=== PATIENT | female | born 1945 | race Caucasian/White ===

== ENCOUNTER 2016-08-24 07:45 | Day surgery (SDC) | payer MEDICARE, BC ==
--- NOTE | 2016-08-24 06:15 | PCM.HP ---
H&P History of Present Illness - General Date of Service: 08/24/16 Admit Problem/Dx: change in bowel habits, family history of colon cancer, abdominal pain Source of Information: Patient History Limitations: Reports: No Limitations - History of Present Illness Initial Comments - Free Text/Narative: The patient is a 71-year-old female referred by Dr. Figueroa for colonoscopy. The patient presents today for colonoscopy. She was last evaluated 07/19/16. She reports the following health changes. She reports on mother's day she was standing by the counter in her grandson's kitchen and had sharp left sided chest pain that faintly radiated to her left arm. She reports it lasted five minutes. It was non-exertional. She did not have shortness of breath, diaphoresis. She has no chest pain presently. She has no palpitations. She denies recurrence of chest pain. She reports this chest pain episode is different than she had in the past, which was worked up as negative. She has not seen her PCP as directed for this. Previously reported-Alternating constipation/diarrhea, has been going on for a year. Still has this. Loose with eating lettuce or other foods. Stools are slimy with diarrhea. NO: hematochezia/ melena/blood on tissue paper/ hemorrhoids. Has 0-4 hard to loose stools, BMs daily. Bowel movements are described as irregular and easy to hard to pass. No unintentional weight loss. No change in stool caliber. Still At times will have abdominal pain prior to stooling. Denies history of ulcerative colitis or Crohn's disease. Denies any family history of inflammatory bowel disease or GI cancers. Family hx of colon cancer in mother. Last colonoscopy was 2002. Still no history of reflux, heartburn, nausea, vomiting, or dysphagia. "Burps a lot with pork." No right upper abdominal pain. At times will have giuliana/light colored stools with potatoes, crackers and cheese. No greasy stools. NO pain/diarrhea with fatty meals. - Related Data Allergies/Adverse Reactions: Allergies Allergy/AdvReac Type Severity Reaction Status Date / Time acetaminophen Allergy Nausea Verified 08/23/16 15:25 [From Darvocet-N] hydrocodone Allergy Nausea Verified 08/23/16 15:25 propoxyphene napsylate Allergy Nausea Verified 08/23/16 15:25 [From Italia-Bertha] Home Medications: Home Meds Cranberry Ext/C/L. Sporogenes [Azo Cranberry] 1 tab PO 6XDAY PRN 08/23/16 [ History] Ibuprofen [Ibuprofen] 800 mg PO Q6H PRN 08/23/16 [History] Levothyroxine [Synthroid] 50 mcg PO MOWEFR 08/23/16 [History] Levothyroxine [Synthroid] 100 mcg PO SUTUTHSA 08/23/16 [History] Losartan/Hydrochlorothiazide [Losartan-HCTZ 100-25 MG] 1 tab PO DAILY 08/23/16 [ History] Metoprolol Succinate 25 mg PO DAILY 08/23/16 [History] Mirabegron [Myrbetriq] 50 mg PO DAILY 08/23/16 [History] Multivitamin with Minerals [Multiple Vitamin] 1 tab PO DAILY 08/23/16 [History] Nitrofurantoin [place]/Macrocryst [Macrobid] 100 mg PO DAILY 08/23/16 [History] Rosuvastatin Calcium 5 mg PO DAILY 08/23/16 [History] Sertraline HCl [Sertraline HCl] 50 mg PO MOWEFR 08/23/16 [History] Sertraline HCl [Sertraline HCl] 100 mg PO SUTUTHSA 08/23/16 [History] metFORMIN HCl [Metformin HCl] 1,000 mg PO BID 08/23/16 [History] Past Medical History HEENT History: Reports: Impaired Vision, Other (See Below) Other HEENT History: wears glasses, tinnitis Cardiovascular History: Reports: High Cholesterol, Hypertension, Other (See Below) Other Cardiovascular History: chest pain Respiratory History: Reports: SOB Gastrointestinal History: Reports: Chronic Constipation, Chronic Diarrhea, Other (See Below) Other Gastrointestinal History: post op nausea/vomiting Genitourinary History: Reports: Urinary Incontinence, UTI, Recurrent SALESPERSON WOMEN'S DRESSES History: Reports: None Musculoskeletal History: Reports: Back Pain, Chronic, Fibromyalgia, Other (See Below) Other Musculoskeletal History: low back pain, lumbar degenerative disc disease, lumbar radiculopathy, spondylarthritis, myofasical pain, lumbar facet arthroplasty Neurological History: Reports: Other (See Below) Other Neuro History: meningioma, memory loss Psychiatric History: Reports: Other (See Below) Other Psychiatric History: fatigue Endocrine/Metabolic History: Reports: Diabetes, Type II, Hypothyroidism Hematologic History: Reports: Blood Transfusion(s) Immunologic History: Reports: None Oncologic (Cancer) History: Reports: None Dermatologic History: Reports: Psoriasis - Past Surgical History Head Surgeries/Procedures: Reports: None GI Surgical History: Reports: Colonoscopy Female Surgical History: Reports: Hysterectomy Musculoskeletal Surgical History: Reports: Other (See Below) Other Musculoskeletal Surgeries/Procedures:: broken ankle/leg with surgical repair, spinal fusion of L3L4L5 Social & Family History - Tobacco Use Smoking Status *Q: Former Smoker Month Tobacco Last Used: 1973 - Caffeine Use Caffeine Use: Reports: None - Recreational Drug Use Recreational Drug Use: No Drug Use in Last 12 Months: No H&P Review of Systems - Review of Systems: Review Of Systems: See Below Free Text/Narrative: Denies any exertional chest pain. Has exertional shortness of breath. No history of any easy bleeding or bruising. No personal or familial history of clotting or bleeding disorders. History of anesthetic complications, hard to come out, nausea. No history of familial anesthetic complications. Denies presence of chest pain, palpitations, lower extremity edema, dyspnea at rest, orthopnea, wheezing, obstructive sleep apnea, chronic cough, upper respiratory symptoms in the last two weeks. No history of blood thinner use. history of anemia, prior to hysterectomy. No history of seizure or stroke. No history of fever, chills, or nightsweats. Has cold sweats during the day. Has been going on for years. No prior cardiology or pulmonology evaluation. General: Reports: No Symptoms. Denies: Fever, Chills HEENT: Reports: No Symptoms Pulmonary: Reports: No Symptoms. Denies: Shortness of Breath Cardiovascular: Reports: Dyspnea on Exertion, Other (see hpi). Denies: Chest Pain, Palpitations, Orthopnea Gastrointestinal: Reports: Other (see hpi). Denies: Black Stool, Bloody Stool Genitourinary: Reports: No Symptoms Musculoskeletal: Reports: No Symptoms, Other (leg cramps last night) Skin: Reports: No Symptoms Psychiatric: Reports: No Symptoms Neurological: Reports: No Symptoms Hematologic/Lymphatic: Reports: No Symptoms Immunologic: Reports: No Symptoms Exam - Exam Exam: See Below - Exam General: Alert, Oriented, Cooperative HEENT: Conjunctiva Clear. No: Scleral Icterus Lungs: Clear to Auscultation, Normal Respiratory Effort Cardiovascular: Regular Rate, Regular Rhythm, Normal S1, Normal S2 Abdomen: Soft. No: Tenderness Back Exam: Normal Inspection Extremities: Normal Inspection. No: Edema Skin: Warm, Dry, Intact Neuro Extensive - Mental Status: Alert, Oriented x3, Normal Mood/Affect, Normal Cognition, Memory Intact Psychiatric: Alert, Normal Affect, Normal Mood *Q Meaningful Use (ADM) - VTE *Q VTE Criteria *Q: - Stroke *Q Stroke Criteria *Q: - AMI *Q AMI Criteria *Q: - Problem List (1) Change in bowel habits SNOMED Code(s): 072872849, 837681222 ICD Code: R19.4 - CHANGE IN BOWEL HABIT Status: Acute Current Visit: Yes (2) Family history of colon cancer SNOMED Code(s): 368520772 ICD Code: Z80.0 - FAMILY HISTORY OF MALIGNANT NEOPLASM OF DIGESTIVE ORGANS Status: Acute Current Visit: Yes (3) Abdominal pain SNOMED Code(s): 72807338 ICD Code: R10.9 - UNSPECIFIED ABDOMINAL PAIN Status: Acute Current Visit : Yes Problem List Initiated/Reviewed/Updated: Yes Assessment/Plan Comment:: 71yr female with change in bowel habits, family history of colon cancer, abdominal pain, need for diagnostic colonoscopy Patient can perform 4 METS of physical activity without chest pain. Patient does have exertional shortness of breath. Recent non-exertional left sided chest pain PLAN: We discussed performing a diagnostic colonoscopy. We discussed the procedure and post operative expectations. We discussed completion of the colonoscopy prep. Verbal and written instructions regarding the prep were reviewed. This procedure will be done at [facility], due to past hx of non- exertional chest pain, shortness of breath with exertion, orders were placed and sent. Recent non-exertional left sided chest pain. NO chest pain today. Normal exam. EKG preop was normal, sinus rhythm. Again, Discussed I would like her to follow up with her PCP for non-exertional left chest pain, shortness of breath and meningioma (with headaches/nausea) RICHARD. She should see Dr. Figueroa this week for the recent left sided chest pain. I personally reviewed the patient's previous medical records and laboratory studies. Patient verbalized understanding and agreed with care plan. Patient evaluated with Dr. Myles. Plan formulated above with Dr. Shar Zelaya, BISQUE GRADER-C scribing for Dr. Teresa Myles General Surgery Department [facility]
[~2016-08-24 07:45] MED LIST: Lactated Ringers 1,000 ML IV SCH; Lidocaine 1%/Sod Bicarbonate in NS 8.4% 1 ML Syringe IV PRN; Sodium Chloride 0.9% 10 ML Syringe FLUSH PRN
--- NOTE | 2016-08-24 07:58 | PCM.PREANE ---
Preanesthetic Assessment - Anesthesia/Transfusion/Family Hx Anesthesia History: Prior Anesthesia Without Reaction Type of Anesthesia Reaction: Unknown Family History of Anesthesia Reaction: No Transfusion History: Unknown Type of Transfusion Reactions: Reports: Unknown - Review of Systems General: No Symptoms Pulmonary: Shortness of Breath Cardiovascular: Chest Pain, Other (non exertional chest pain, HTN, EKG shows NSR with EF70%) Gastrointestinal: Diarrhea Neurological: No Symptoms Other: Reports: Diabetes, Thyroid Problems - Physical Assessment NPO Status Date: 08/23/16 NPO Status Time: 20:00 Pulse: 65 O2 Sat by Pulse Oximetry: 95 Respiratory Rate: 16 Blood Pressure: 149/67 Temperature: 35.9 C Weight: 75 kg ASA Class: 3 Mental Status: Alert & Oriented x3 Airway Class: Mallampati = 2 Dentition: Reports: Normal Dentition Thyro-Mental Finger Breadths: 2 Mouth Opening Finger Breadths: 3 ROM/Head Extension: Limited/Partial Lungs: Clear to auscultation, Normal respiratory effort Cardiovascular: Regular Rate, Regular Rhythm - Allergies Allergies/Adverse Reactions: Allergies Allergy/AdvReac Type Severity Reaction Status Date / Time acetaminophen Allergy Nausea Verified 08/23/16 15:25 [From Darvocet-N] hydrocodone Allergy Nausea Verified 08/23/16 15:25 propoxyphene napsylate Allergy Nausea Verified 08/23/16 15:25 [From Darvocet-N] - Blood Blood Available: No Product(s) Available: None - Anesthesia Plan Pre-Op Medication Ordered: None Beta Vonda: Metoprolol Med Last Dose Date: 08/24/16 Med Last Dose Time: 07:30 - Acknowledgements Anesthesia Type Planned: MAC Pt an Appropriate Candidate for the Planned Anesthesia: Yes Alternatives and Risks of Anesthesia Discussed w Pt/Guardian: Yes Pt/Guardian Understands and Agrees with Anesthesia Plan: Yes PreAnesthesia Questionnaire HEENT History: Reports: Impaired Vision, Other (See Below) Other HEENT History: wears glasses, tinnitis Cardiovascular History: Reports: High Cholesterol, Hypertension, Other (See Below) Other Cardiovascular History: chest pain Respiratory History: Reports: SOB Gastrointestinal History: Reports: Chronic Constipation, Chronic Diarrhea, Other (See Below) Other Gastrointestinal History: post op nausea/vomiting Genitourinary History: Reports: Urinary Incontinence, UTI, Recurrent CELL INSPECTOR History: Reports: None Musculoskeletal History: Reports: Back Pain, Chronic, Fibromyalgia, Other (See Below) Other Musculoskeletal History: low back pain, lumbar degenerative disc disease, lumbar radiculopathy, spondylarthritis, myofasical pain, lumbar facet arthroplasty Neurological History: Reports: Other (See Below) Other Neuro History: meningioma, memory loss Psychiatric History: Reports: Other (See Below) Other Psychiatric History: fatigue Endocrine/Metabolic History: Reports: Diabetes, Type II, Hypothyroidism Hematologic History: Reports: Blood Transfusion(s) Immunologic History: Reports: None Oncologic (Cancer) History: Reports: None Dermatologic History: Reports: Psoriasis - Past Surgical History Head Surgeries/Procedures: Reports: None GI Surgical History: Reports: Colonoscopy Female Surgical History: Reports: Hysterectomy Musculoskeletal Surgical History: Reports: Other (See Below) Other Musculoskeletal Surgeries/Procedures:: broken ankle/leg with surgical repair, spinal fusion of L3L4L5 - SUBSTANCE USE Smoking Status *Q: Former Smoker Recreational Drug Use History: No - HOME MEDS Home Medications: Home Meds Cranberry Ext/C/L. Sporogenes [Azo Cranberry] 1 tab PO 6XDAY PRN 08/23/16 [ History] Ibuprofen [Ibuprofen] 800 mg PO Q6H PRN 08/23/16 [History] Levothyroxine [Synthroid] 50 mcg PO MOWEFR 08/23/16 [History] Levothyroxine [Synthroid] 100 mcg PO SUTUTHSA 08/23/16 [History] Losartan/Hydrochlorothiazide [Losartan-HCTZ 100-25 MG] 1 tab PO DAILY 08/23/16 [ History] Metoprolol Succinate 25 mg PO DAILY 08/23/16 [History] Mirabegron [Myrbetriq] 50 mg PO DAILY 08/23/16 [History] Multivitamin with Minerals [Multiple Vitamin] 1 tab PO DAILY 08/23/16 [History] Nitrofurantoin [place]/Macrocryst [Macrobid] 100 mg PO DAILY 08/23/16 [History] Rosuvastatin Calcium 5 mg PO DAILY 08/23/16 [History] Sertraline HCl [Sertraline HCl] 50 mg PO MOWEFR 08/23/16 [History] Sertraline HCl [Sertraline HCl] 100 mg PO SUTUTHSA 08/23/16 [History] metFORMIN HCl [Metformin HCl] 1,000 mg PO BID 08/23/16 [History] - CURRENT (IN HOUSE) MEDS Current Meds: Current Medications Lactated Ringer's (Ringers, Lactated) 1,000 mls @ 125 mls/hr IV ASDIRECTED JORDAN Stop: 08/24/16 23:00 Lidocaine/Sodium Bicarbonate (Buffered Lidocaine 1% In Ns 8.4%) 0.25 ml IV ONETIME PRN PRN Reason: Prior to IV Start Stop: 08/24/16 18:00 Sodium Chloride (Saline Flush) 10 ml FLUSH ASDIRECTED PRN PRN Reason: Keep Vein Open Stop: 08/24/16 18:00
--- NOTE | 2016-08-24 08:15 | PCM.OPNOTE ---
[id number] colonoscopy Pre Op Diagnosis: Change in bowel habits, family history of colon cancer in mother, abdominal pain Post-Op Diagnosis: Diverticulosis, colon polyps Anesthesia Technique: MAC Primary Surgeon: Teresa Myles Clinical Rehabilitation Liaison: Wilda Petersen Fluid Replacement, Intraop: 800 (mL crystalloid ) Complications: None Condition: Good Free Text/Narrative:: INDICATION FOR PROCEDURE: The patient is a 71-year-old woman who was referred to me by Dr. Jerrod Figueroa for evaluation for abdominal pain, change in bowel habits, family history of cancer of the colon in her mother. Her last colonoscopy was in 2002. Performing a diagnostic colonoscopy and the associated risks of the procedure had been discussed with the patient. The patient found these risks acceptable and agreed to proceed. DESCRIPTION OF PROCEDURE: The patient was taken to the operating room and placed in left lateral decubitus position. After induction of adequate sedation , a digital rectal exam was performed which was unremarkable. A pediatric Olympus colonoscope was inserted into the rectum and guided under direct visualization to the appendiceal orifice and ileocecal valve. The scope was then slowly withdrawn through the colon. The quality of the prep was good. There was no evidence of angiodysplasias. A small cecal polyp was noted and removed in its entirety using cold forceps. A small transverse colon polyp was noted and removed in its entirety using cold forceps. A small rectosigmoid colon polyp was noted and was removed in its entirety using cold forceps., diverticulum or mass lesions. There were scattered diverticulosis that was mild in the sigmoid colon. The scope was withdrawn into the rectum and retroflexed. There was no significant prominence of the patient's internal hemorrhoids. The scope was straightened, the colon was desufflated, and the scope was withdrawn. The patient was awakened from sedation and transferred to the recovery room in stable condition having tolerated the procedure well. POSTOPERATIVE PLAN: The patient will be sent a letter with her pathology results and followup recommendations for her next colonoscopy. She is to call with any questions or concerns.
[2016-08-24] MEDS ORDERED: Propofol 200 MG/20 ML SDV ONE ×2 (08:53→09:06)
--- NOTE | 2016-08-24 09:10 | PCM48HPAN ---
Post Anesthesia Note - EVALUATION WITHIN 48HRS OF ANESTHETIC Vital Signs in Normal Range: Yes Patient Participated in Evaluation: Yes Respiratory Function Stable: Yes Airway Patent: Yes Cardiovascular Function Stable: Yes Hydration Status Stable: Yes Pain Control Satisfactory: Yes Nausea and Vomiting Control Satisfactory: Yes Mental Status Recovered: Yes
[2016-08-24 13:29] VITALS: BP 128/88
== END 2016-08-24 10:10 | disposition home or self-care (01) ==
LOC: JD.SDS 07:45
PROVIDERS: ATTEND Surgery
DX: D12.0 Benign neoplasm of cecum (principal); D12.3 Benign neoplasm of transverse colon; K63.5 Polyp of colon; K57.30 Diverticulosis of large intestine without perforation or abscess without bleeding; K64.8 Other hemorrhoids; Z80.0 Family history of malignant neoplasm of digestive organs; E11.9 Type 2 diabetes mellitus without complications; I10 Essential (primary) hypertension; E03.9 Hypothyroidism, unspecified; M79.7 Fibromyalgia; F41.9 Anxiety disorder, unspecified; Z79.899 Other long term (current) drug therapy; Z98.890 Other specified postprocedural states; Z88.5 Allergy status to narcotic agent; Z88.6 Allergy status to analgesic agent
CPT/HCPCS: 45380; 82962; 88305; 93005; J7120; 00810; J2704

== ENCOUNTER 2018-06-26 09:09 | Day surgery (SDC) | payer MEDICARE, BC ==
[~2018-06-26 09:09] MED LIST changes: +Brimonidine 0.2% Ophth Soln 5 ML Bottle EYERT SCH; +Cefuroxime 10 MG/ML SYRINGE EYERT SCH; -Lactated Ringers 1,000 ML IV SCH; +Lidocaine 1% PF 2 ML SDV INJECT SCH; -Lidocaine 1%/Sod Bicarbonate in NS 8.4% 1 ML Syringe IV PRN; +Phenylephrine 2.5% Ophth Soln 2 ML Bot EYERT SCH; +Pilocarpine 4% Ophth Soln 15 ML Bot EYERT SCH; +Polymyxin B/Trimethoprim 10 ML Bottle EYERT SCH; -Sodium Chloride 0.9% 10 ML Syringe FLUSH PRN; +Tetracaine HCl/PF 0.5% 4 ML Bottle EYERT SCH; +Tropicamide 1% Ophth Soln 15 ML Bottle EYERT SCH
[2018-06-26] MEDS: Polymyxin B/Trimethoprim 10 ML Bottle EYERT SCH ×3 (09:34→11:34)
[2018-06-26] MEDS: Brimonidine 0.2% Ophth Soln 5 ML Bottle EYERT SCH ×2 (09:40→10:26)
--- NOTE | 2018-06-26 09:42 | PCM.PREANE ---
Preanesthetic Assessment - Anesthesia/Transfusion/Family Hx Anesthesia History: Prior Anesthesia Without Reaction Family History of Anesthesia Reaction: No Transfusion History: Unknown Type of Transfusion Reactions: Reports: Unknown - Review of Systems General: No Symptoms Pulmonary: Shortness of Breath, Other (JB with cpap) Cardiovascular: No Symptoms, Chest Pain (very rare, just goes away with rest), Other (HTN) Gastrointestinal: No Symptoms, Other Neurological: No Symptoms Other: Reports: Diabetes (bs at 0830 170), Thyroid Problems - Physical Assessment NPO Status Date: 06/25/18 NPO Status Time: 23:30 Pulse: 65 O2 Sat by Pulse Oximetry: 94 Respiratory Rate: 16 Blood Pressure: 140/65 Vital Signs: Last Vital Signs Temp 36.2 C 06/26/18 09:20 Pulse 64 06/26/18 09:20 Resp 16 06/26/18 09:20 BP 140/63 06/26/18 09:20 Pulse Ox 94 L 06/26/18 09:20 Height: 1.6 m Weight: 76.657 kg ASA Class: 3 Mental Status: Alert & Oriented x3 Airway Class: Mallampati = 2 Dentition: Reports: Normal Dentition Thyro-Mental Finger Breadths: 3 Mouth Opening Finger Breadths: 3 ROM/Head Extension: Full Lungs: Clear to Auscultation, Normal Respiratory Effort Cardiovascular: Regular Rate, Regular Rhythm - Allergies Allergies/Adverse Reactions: Allergies Allergy/AdvReac Type Severity Reaction Status Date / Time acetaminophen AdvReac Nausea Verified 06/25/18 13:58 [From Darvocet-N] hydrocodone AdvReac Nausea Verified 06/25/18 13:58 propoxyphene napsylate AdvReac Nausea Verified 06/25/18 13:58 [From Darvocet-N] - Blood Blood Available: No Product(s) Available: None - Anesthesia Plan Pre-Op Medication Ordered: None Beta Vonda: Metoprolol Med Last Dose Date: 06/25/18 Med Last Dose Time: 20:00 - Acknowledgements Anesthesia Type Planned: MAC Pt an Appropriate Candidate for the Planned Anesthesia: Yes Alternatives and Risks of Anesthesia Discussed w Pt/Guardian: Yes Pt/Guardian Understands and Agrees with Anesthesia Plan: Yes PreAnesthesia Questionnaire HEENT History: Reports: Impaired Vision, Other (See Below) Other HEENT History: wears glasses, tinnitis Cardiovascular History: Reports: High Cholesterol, Hypertension, Other (See Below) Other Cardiovascular History: chest pain Respiratory History: Reports: SOB Gastrointestinal History: Reports: Chronic Constipation, Chronic Diarrhea, Other (See Below) Other Gastrointestinal History: post op nausea/vomiting Genitourinary History: Reports: Urinary Incontinence, UTI, Recurrent SERVICE STATION HELPER History: Reports: None Musculoskeletal History: Reports: Back Pain, Chronic, Fibromyalgia, Other (See Below) Other Musculoskeletal History: low back pain, lumbar degenerative disc disease, lumbar radiculopathy, spondylarthritis, myofasical pain, lumbar facet arthroplasty Neurological History: Reports: Other (See Below) Other Neuro History: meningioma, memory loss Psychiatric History: Reports: Other (See Below) Other Psychiatric History: fatigue Endocrine/Metabolic History: Reports: Diabetes, Type II, Hypothyroidism Hematologic History: Reports: Blood Transfusion(s) Immunologic History: Reports: None Oncologic (Cancer) History: Reports: None Dermatologic History: Reports: Psoriasis - Past Surgical History Head Surgeries/Procedures: Reports: None GI Surgical History: Reports: Colonoscopy Female Surgical History: Reports: Hysterectomy Musculoskeletal Surgical History: Reports: Other (See Below) Other Musculoskeletal Surgeries/Procedures:: broken ankle/leg with surgical repair, spinal fusion of L3L4L5 - HOME MEDS Home Medications: Home Meds Levothyroxine [Synthroid] 50 mcg PO MOWEFR 08/23/16 [History] Levothyroxine [Synthroid] 100 mcg PO SUTUTHSA 08/23/16 [History] Losartan/Hydrochlorothiazide [Losartan-HCTZ 100-25 MG] 1 tab PO DAILY 08/23/16 [ History] Metoprolol Succinate 25 mg PO DAILY 08/23/16 [History] Multivitamin with Minerals [Multiple Vitamin] 1 tab PO DAILY 08/23/16 [History] Rosuvastatin Calcium 5 mg PO BEDTIME 08/23/16 [History] Sertraline HCl 100 mg PO BEDTIME 08/23/16 [History] metFORMIN HCl [Metformin HCl] 1,000 mg PO BID 08/23/16 [History] Vitamin E 400 unit PO DAILY 06/25/18 [History] - CURRENT (IN HOUSE) MEDS Current Meds: Current Medications Brimonidine Tartrate (Alphagan 0.2% Ophth Soln) 0 ml EYERT ASDIRECTED JORDAN Stop: 06/26/18 23:00 Cefuroxime Sodium (Zinacef) 0 mg EYERT ASDIRECTED JORDAN Stop: 06/26/18 23:00 Lidocaine HCl (Xylocaine-Mpf 1%) 0 ml INJECT ASDIRECTED JORDAN Stop: 06/26/18 23:00 Phenylephrine HCl (Shaun-Synephrine 2.5% Ophth Soln) 0 ml EYERT ASDIRECTED JORDAN Stop: 06/26/18 23:00 Pilocarpine HCl (Pilocar 4% Ophth Soln) 0 ml EYERT ASDIRECTED JORDAN Stop: 06/26/18 23:00 Polymyxin/Trimethoprim Sulfate (Polytrim Ophth Soln) 0 ml EYERT ASDIRECTED JORDAN Stop: 06/26/18 23:00 Last Admin: 06/26/18 09:34 Dose: 1 drop Tetracaine HCl (Tetracaine 0.5% Steri-Unit Madelyn) 0 ml EYERT ASDIRECTED JORDAN Stop: 06/26/18 23:00 Tropicamide (Mydriacyl 1% Ophth Soln) 0 ml EYERT ASDIRECTED JORDAN Stop: 06/26/18 23:00 Discontinued Medications Brimonidine Tartrate (Alphagan 0.2% Ophth Soln) 0 ml EYERT ASDIRECTED JORDAN Stop: 05/31/18 18:00 Cefuroxime Sodium (Zinacef) 0 mg EYERT ASDIRECTED JORDAN Stop: 05/31/18 18:00 Lidocaine HCl (Xylocaine-Mpf 1%) 0 ml INJECT ASDIRECTED JORDAN Stop: 05/31/18 18:00 Phenylephrine HCl (Shaun-Synephrine 2.5% Ophth Soln) 0 ml EYERT ASDIRECTED JORDAN Stop: 05/31/18 18:00 Pilocarpine HCl (Pilocar 4% Ophth Soln) 0 ml EYERT ASDIRECTED JORDAN Stop: 05/31/18 18:00 Polymyxin/Trimethoprim Sulfate (Polytrim Ophth Soln) 0 ml EYERT ASDIRECTED JORDAN Stop: 05/31/18 18:00 Tetracaine HCl (Tetracaine 0.5% Steri-Unit Madelyn) 0 ml EYERT ASDIRECTED JORDAN Stop: 05/31/18 18:00 Tropicamide (Mydriacyl 1% Ophth Soln) 0 ml EYERT ASDIRECTED JORDAN Stop: 05/31/18 18:00
[2018-06-26] MEDS: Phenylephrine 2.5% Ophth Soln 2 ML Bot EYERT SCH ×5 (09:46→11:06)
[2018-06-26] MEDS: Tropicamide 1% Ophth Soln 15 ML Bottle EYERT SCH ×4 (09:55→10:45)
[2018-06-26] MEDS: Tetracaine HCl/PF 0.5% 4 ML Bottle EYERT SCH ×3 (10:53→11:34)
--- NOTE | 2018-06-26 11:35 | PCM48HPAN ---
Post Anesthesia Note - EVALUATION WITHIN 48HRS OF ANESTHETIC Vital Signs in Normal Range: Yes Patient Participated in Evaluation: Yes Respiratory Function Stable: Yes Airway Patent: Yes Cardiovascular Function Stable: Yes Hydration Status Stable: Yes Pain Control Satisfactory: Yes Nausea and Vomiting Control Satisfactory: Yes Mental Status Recovered: Yes Pulse Rate: 65 Resp Rate: 16 Blood Pressure: 140/65
[2018-06-26 11:55] VITALS: BP 144/70
== END 2018-06-26 11:50 | disposition home or self-care (01) ==
LOC: JD.SDS 09:09
PROVIDERS: ATTEND Ophthalmology
DX: E11.36 Type 2 diabetes mellitus with diabetic cataract (principal); H25.813 Combined forms of age-related cataract, bilateral; I10 Essential (primary) hypertension; H02.831 Dermatochalasis of right upper eyelid; H16.223 Keratoconjunctivitis sicca, not specified as Sjogren's, bilateral; H02.834 Dermatochalasis of left upper eyelid; H16.103 Unspecified superficial keratitis, bilateral; H40.003 Preglaucoma, unspecified, bilateral; Z87.891 Personal history of nicotine dependence; Z79.84 Long term (current) use of oral hypoglycemic drugs; Z79.890 Hormone replacement therapy; Z79.899 Other long term (current) drug therapy
CPT/HCPCS: 66984; A9270; J0697; J2001

== ENCOUNTER 2018-07-24 06:47 | Day surgery (SDC) | payer MEDICARE, BC ==
[2018-07-24] MEDS: Polymyxin B/Trimethoprim 10 ML Bottle EYELF SCH ×4 (07:09→08:36)
[2018-07-24] MEDS: Brimonidine 0.2% Ophth Soln 5 ML Bottle EYELF SCH ×4 (07:15→08:36)
[2018-07-24] MEDS: Phenylephrine 2.5% Ophth Soln 2 ML Bot EYELF SCH ×6 (07:20→08:11)
[2018-07-24] MEDS: Tropicamide 1% Ophth Soln 15 ML Bottle EYELF SCH ×4 (07:26→08:01)
--- NOTE | 2018-07-24 07:27 | PCM.PREANE ---
Preanesthetic Assessment - Anesthesia/Transfusion/Family Hx Anesthesia History: Prior Anesthesia Without Reaction Family History of Anesthesia Reaction: No Transfusion History: Unknown Type of Transfusion Reactions: Reports: Unknown - Review of Systems General: No Symptoms Pulmonary: No Symptoms Cardiovascular: No Symptoms Gastrointestinal: No Symptoms Neurological: No Symptoms Other: Reports: None - Physical Assessment NPO Status Date: 07/23/18 NPO Status Time: 20:00 Pulse: 58 O2 Sat by Pulse Oximetry: 96 Respiratory Rate: 16 Blood Pressure: 134/60 Temperature: 98.2 C Vital Signs: Last Vital Signs Temp 36.8 C 07/24/18 06:55 Pulse 58 L 07/24/18 06:55 Resp 16 07/24/18 06:55 BP 134/60 07/24/18 06:55 Pulse Ox 96 07/24/18 06:55 Height: 1.6 m Weight: 75.75 kg ASA Class: 2 Mental Status: Alert & Oriented x3 Dentition: Reports: Normal Dentition Thyro-Mental Finger Breadths: 3 Mouth Opening Finger Breadths: 3 ROM/Head Extension: Full Lungs: Clear to Auscultation, Normal Respiratory Effort Cardiovascular: Regular Rate, Regular Rhythm - Allergies Allergies/Adverse Reactions: Allergies Allergy/AdvReac Type Severity Reaction Status Date / Time acetaminophen AdvReac Nausea Verified 07/23/18 15:05 [From Darvocet-N] hydrocodone AdvReac Nausea Verified 07/23/18 15:05 propoxyphene napsylate AdvReac Nausea Verified 07/23/18 15:05 [From Darvocet-N] - Anesthesia Plan Beta Vonda: Metoprolol Med Last Dose Date: 07/23/18 Med Last Dose Time: 09:00 - Acknowledgements Anesthesia Type Planned: MAC Pt an Appropriate Candidate for the Planned Anesthesia: Yes Alternatives and Risks of Anesthesia Discussed w Pt/Guardian: Yes Pt/Guardian Understands and Agrees with Anesthesia Plan: Yes PreAnesthesia Questionnaire HEENT History: Reports: Impaired Vision, Other (See Below) Other HEENT History: wears glasses, tinnitis Cardiovascular History: Reports: High Cholesterol, Hypertension, Other (See Below) (denies CP) Other Cardiovascular History: chest pain Respiratory History: Reports: SOB (SOB with exertion) Gastrointestinal History: Reports: Chronic Constipation, Chronic Diarrhea, Other (See Below) Other Gastrointestinal History: post op nausea/vomiting Genitourinary History: Reports: Urinary Incontinence, UTI, 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 Musculoskeletal History: Reports: Back Pain, Chronic, Fibromyalgia, Other (See Below) Other Musculoskeletal History: low back pain, lumbar degenerative disc disease, lumbar radiculopathy, spondylarthritis, myofasical pain, lumbar facet arthroplasty Neurological History: Reports: Other (See Below) Other Neuro History: meningioma, memory loss Psychiatric History: Reports: Other (See Below) Other Psychiatric History: fatigue Endocrine/Metabolic History: Reports: Diabetes, Type II (BS 07/23 157), Hypothyroidism Hematologic History: Reports: Blood Transfusion(s) Immunologic History: Reports: None Oncologic (Cancer) History: Reports: None Dermatologic History: Reports: Psoriasis - Past Surgical History Head Surgeries/Procedures: Reports: None HEENT Surgical History: Reports: Cataract Surgery GI Surgical History: Reports: Colonoscopy Female Surgical History: Reports: Hysterectomy Neurological Surgical History: Reports: Spinal Fusion (L3-4 L4-5) Musculoskeletal Surgical History: Reports: Other (See Below) Other Musculoskeletal Surgeries/Procedures:: broken ankle/leg with surgical repair, spinal fusion of L3L4L5 - SUBSTANCE USE Smoking Status *Q: Former Smoker - HOME MEDS Home Medications: Home Meds Levothyroxine [Synthroid] 50 mcg PO MOWEFR 08/23/16 [History] Levothyroxine [Synthroid] 100 mcg PO SUTUTHSA 08/23/16 [History] Losartan/Hydrochlorothiazide [Losartan-HCTZ 100-25 MG] 1 tab PO DAILY 08/23/16 [ History] Metoprolol Succinate 25 mg PO DAILY 08/23/16 [History] Multivitamin with Minerals [Multiple Vitamin] 1 tab PO DAILY 08/23/16 [History] Rosuvastatin Calcium 5 mg PO BEDTIME 08/23/16 [History] Sertraline HCl 100 mg PO BEDTIME 08/23/16 [History] metFORMIN HCl [Metformin HCl] 1,000 mg PO BID 08/23/16 [History] Vitamin E 400 unit PO DAILY 06/25/18 [History] - CURRENT (IN HOUSE) MEDS Current Meds: Current Medications Brimonidine Tartrate (Alphagan 0.2% Ophth Soln) 0 ml EYELF ASDIRECTED JORDAN Stop: 07/24/18 18:00 Last Admin: 07/24/18 07:15 Dose: 1 drop Cefuroxime Sodium (Zinacef) 0 mg EYELF ASDIRECTED JORDAN Stop: 07/24/18 18:00 Lidocaine HCl (Xylocaine-Mpf 1%) 0 ml INJECT ASDIRECTED JORDAN Stop: 07/24/18 18:00 Phenylephrine HCl (Shaun-Synephrine 2.5% Ophth Soln) 0 ml EYELF ASDIRECTED JORDAN Stop: 07/24/18 18:00 Pilocarpine HCl (Pilocar 4% Ophth Soln) 0 ml EYELF ASDIRECTED JORDAN Stop: 07/24/18 18:00 Polymyxin/Trimethoprim Sulfate (Polytrim Ophth Soln) 0 ml EYELF ASDIRECTED JORDAN Stop: 07/24/18 18:00 Last Admin: 07/24/18 07:09 Dose: 1 drop Tetracaine HCl (Tetracaine 0.5% Steri-Unit Madelyn) 0 ml EYELF ASDIRECTED JORDAN Stop: 07/24/18 18:00 Tropicamide (Mydriacyl 1% Ophth Soln) 0 ml EYELF ASDIRECTED JORDAN Stop: 07/24/18 18:00
[2018-07-24] MEDS: Cefuroxime 10 MG/ML SYRINGE EYELF SCH ×2 (07:47→08:35)
[2018-07-24] MEDS: Lidocaine 1% PF 2 ML SDV INJECT SCH ×2 (07:47→08:24)
[2018-07-24] MEDS: Tetracaine HCl/PF 0.5% 4 ML Bottle EYELF SCH ×3 (07:47→08:24)
[2018-07-24] MEDS: Pilocarpine 4% Ophth Soln 15 ML Bot EYELF SCH ×2 (07:48→08:36)
--- NOTE | 2018-07-24 08:46 | PCM48HPAN ---
Post Anesthesia Note - EVALUATION WITHIN 48HRS OF ANESTHETIC Vital Signs in Normal Range: Yes Patient Participated in Evaluation: Yes Respiratory Function Stable: Yes Airway Patent: Yes Cardiovascular Function Stable: Yes Hydration Status Stable: Yes Pain Control Satisfactory: Yes Nausea and Vomiting Control Satisfactory: Yes Mental Status Recovered: Yes Pulse Rate: 58 Resp Rate: 16 Temperature: 98.2 C Blood Pressure: 134/60
[2018-07-24 08:54] VITALS: BP 147/64
== END 2018-07-24 08:50 | disposition home or self-care (01) ==
LOC: JD.SDS 06:47
PROVIDERS: ATTEND Ophthalmology
DX: H25.812 Combined forms of age-related cataract, left eye (principal); H02.835 Dermatochalasis of left lower eyelid; H02.834 Dermatochalasis of left upper eyelid; E11.9 Type 2 diabetes mellitus without complications; Z87.891 Personal history of nicotine dependence; I10 Essential (primary) hypertension; E03.9 Hypothyroidism, unspecified; Z96.1 Presence of intraocular lens; Z79.84 Long term (current) use of oral hypoglycemic drugs; Z79.899 Other long term (current) drug therapy; Z88.5 Allergy status to narcotic agent; Z88.6 Allergy status to analgesic agent; Z99.89 Dependence on other enabling machines and devices
CPT/HCPCS: 66984; A9270; C1780; J0697; J2001

== ENCOUNTER 2020-07-29 07:17 | Emergency (ER) | payer MEDICARE, BC ==
[2020-07-29] MEDS ORDERED: Sodium Chloride 0.9% 10 ML Syringe FLUSH PRN (07:25)
[2020-07-29] MEDS ORDERED: Aspirin 81 MG Tab.Chew PO ONE (07:26)
[2020-07-29 07:27] VITALS: BP 171/63; PULSE 77
--- NOTE | 2020-07-29 08:09 | CR ---
Chest: Portable view of the chest was obtained. Comparison: No prior chest imaging is available. Heart size and mediastinum are normal. Lungs are clear with no acute parenchymal change. Slight scoliosis is noted within the spine. Impression: 1. Slight scoliosis. 2. Nothing acute is seen on portable chest x-ray Diagnostic code #2
--- NOTE | 2020-07-29 10:06 | EDM.PDOC ---
ED HPI GENERAL MEDICAL PROBLEM - General Chief Complaint: Chest Pain Stated Complaint: CHEST PAIN Time Seen by Provider: 07/29/20 07:22 Source of Information: Reports: Patient History Limitations: Reports: No Limitations - History of Present Illness INITIAL COMMENTS - FREE TEXT/NARRATIVE: The patient presents from the stress test lab for chest pain. She was there for a Lorenza scan and after being injected she had chest pain and shortness of breath. She had some ST depression. She was sent over for further management. The chest pain was gone when she got to the ER. She was very tired though. She has no fever, chills, cough, congestion, runny nose, abdominal pain, nausea or vomiting. She has a history of hypertension. She has never had an CA before. She does not smoke. Onset: Sudden Duration: Minutes: Location: Reports: Chest Quality: Reports: Pressure Severity: Moderate Improves with: Reports: None Worsens with: Reports: None Associated Symptoms: Reports: Chest Pain, Shortness of Breath. Denies: Cough, Fever/Chills, Headaches, Nausea/Vomiting - Related Data Allergies Allergy/AdvReac Type Severity Reaction Status Date / Time acetaminophen AdvReac Nausea Verified 07/29/20 07:27 [From Darvocet-N] hydrocodone AdvReac Nausea Verified 07/29/20 07:27 propoxyphene napsylate AdvReac Nausea Verified 07/29/20 07:27 [From Darvocet-N] Home Meds: Home Meds Levothyroxine [Synthroid] 50 mcg PO MOWEFR 08/23/16 [History] Levothyroxine [Synthroid] 100 mcg PO SUTUTHSA 08/23/16 [History] Losartan/Hydrochlorothiazide [Losartan-HCTZ 100-25 MG] 1 tab PO DAILY 08/23/16 [History] Metoprolol Succinate 25 mg PO DAILY 08/23/16 [History] Multivitamin with Minerals [Multiple Vitamin] 1 tab PO DAILY 08/23/16 [History] Rosuvastatin Calcium 5 mg PO BEDTIME 08/23/16 [History] Sertraline HCl 100 mg PO BEDTIME 08/23/16 [History] metFORMIN HCl [Metformin HCl] 1,000 mg PO BID 08/23/16 [History] Vitamin E 400 unit PO DAILY 06/25/18 [History] Past Medical History HEENT History: Reports: Impaired Vision, Other (See Below) Other HEENT History: wears glasses, tinnitis Cardiovascular History: Reports: High Cholesterol, Hypertension, Other (See Below) Other Cardiovascular History: chest pain Respiratory History: Reports: SOB Gastrointestinal History: Reports: Chronic Constipation, Chronic Diarrhea, Other (See Below) Other Gastrointestinal History: post op nausea/vomiting Genitourinary History: Reports: Urinary Incontinence, UTI, 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 Musculoskeletal History: Reports: Back Pain, Chronic, Fibromyalgia, Other (See Below) Other Musculoskeletal History: low back pain, lumbar degenerative disc disease, lumbar radiculopathy, spondylarthritis, myofasical pain, lumbar facet arthroplasty Neurological History: Reports: Other (See Below) Other Neuro History: meningioma, memory loss Psychiatric History: Reports: Other (See Below) Other Psychiatric History: fatigue Endocrine/Metabolic History: Reports: Diabetes, Type II, Hypothyroidism Hematologic History: Reports: Blood Transfusion(s) Immunologic History: Reports: None Oncologic (Cancer) History: Reports: None Dermatologic History: Reports: Psoriasis - Past Surgical History Head Surgeries/Procedures: Reports: None HEENT Surgical History: Reports: Cataract Surgery GI Surgical History: Reports: Colonoscopy Female Surgical History: Reports: Hysterectomy Neurological Surgical History: Reports: Spinal Fusion Musculoskeletal Surgical History: Reports: Other (See Below) Other Musculoskeletal Surgeries/Procedures:: broken ankle/leg with surgical repair, spinal fusion of L3L4L5 Social & Family History - Tobacco Use Tobacco Use Status *Q: Former Tobacco User Used Tobacco, but Quit: Yes Month/Year Tobacco Last Used: 1979 - Caffeine Use Caffeine Use: Reports: None ED ROS GENERAL - Review of Systems Review Of Systems: See Below Constitutional: Reports: No Symptoms HEENT: Reports: No Symptoms Respiratory: Reports: Shortness of Breath Cardiovascular: Reports: Chest Pain Endocrine: Reports: No Symptoms GI/Abdominal: Reports: No Symptoms : Reports: No Symptoms ED EXAM, GENERAL - Physical Exam Exam: See Below Exam Limited By: No Limitations General Appearance: Alert, No Apparent Distress Ears: Normal External Exam Nose: Normal Inspection Head: Atraumatic, Normocephalic Neck: Normal Inspection Respiratory/Chest: No Respiratory Distress, Lungs Clear, Normal Breath Sounds Cardiovascular: Regular Rate, Rhythm, No Edema, No Murmur GI/Abdominal: Soft, Non-Tender, No Organomegaly, No Mass Back Exam: Normal Inspection Extremities: Normal Inspection #1 Interpretation EKG Date: 07/29/20 Time: 07:21 Rhythm: NSR Rate (Beats/Min): 78 [place]: Normal P-Wave: Present QRS: Normal ST-T: Normal QT: Normal #2 Interpretation EKG Date: 07/29/20 Time: 10:45 Rhythm: NSR Rate (Beats/Min): 76 [place]: Normal P-Wave: Present QRS: Normal ST-T: Normal QT: Normal Course - Vital Signs Last Recorded V/S: Last Vital Signs Temp 97.5 F 07/29/20 07:24 Pulse 77 07/29/20 07:24 Resp 20 07/29/20 07:24 BP 171/63 H 07/29/20 07:24 Pulse Ox 97 07/29/20 07:24 - Orders/Labs/Meds Orders: Active Orders 24 hr Category Date Time Status Cardiac Monitoring [RC] . DIRECTED Care 07/29/20 07:25 Active EKG Documentation Completion [RC] ASDIRECTED Care 07/29/20 10:16 Active EKG Documentation Completion [RC] STAT Care 07/29/20 07:26 Active Peripheral IV Care [RC] . DIRECTED Care 07/29/20 07:26 Active Sodium Chloride 0.9% [Saline Flush] Med 07/29/20 07:25 Active 10 ml FLUSH ASDIRECTED PRN Peripheral IV Insertion Adult [OM.PC] Stat Oth 07/29/20 07:25 Ordered EKG 12 Lead [EK] Stat Ther 07/29/20 10:16 Ordered Medication Orders Sodium Chloride (Sodium Chloride 0.9% 10 Ml Syringe) 10 ml FLUSH ASDIRECTED PRN PRN Reason: Keep Vein Open Last Admin: 07/29/20 07:31 Dose: 10 ml Documented by: RUTH Labs: Laboratory Tests 07/29/20 07/29/20 07/29/20 Range/Units 07:28 07:28 10:28 WBC 6.38 (3.98-10.04) K/mm3 RBC 4.06 (3.98-5.22) M/mm3 Hgb 12.0 (11.2-15.7) gm/dl Hct 36.6 (34.1-44.9) % MCV 90.1 (79.4-94.8) fl MCH 29.6 (25.6-32.2) pg MCHC 32.8 (32.2-35.5) g/dl RDW Std Deviation 44.0 (36.4-46.3) fL Plt Count 204 (182-369) K/mm3 MPV 9.5 (9.4-12.3) fl Neut % (Auto) 54.9 (34.0-71.1) % Lymph % (Auto) 32.0 (19.3-51.7) % [place] % (Auto) 8.9 (4.7-12.5) % Eos % (Auto) 3.6 (0.7-5.8) Baso % (Auto) 0.6 (0.1-1.2) % Neut # (Auto) 3.50 (1.56-6.13) K/mm3 Lymph # (Auto) 2.04 (1.18-3.74) K/mm3 [place] # (Auto) 0.57 H (0.24-0.36) K/mm3 Eos # (Auto) 0.23 (0.04-0.36) K/mm3 Baso # (Auto) 0.04 (0.01-0.08) K/mm3 Sodium 138 (136-145) mEq/L Potassium 3.5 (3.5-5.1) mEq/L Chloride 100 (98-107) mEq/L Carbon Dioxide 25 (21-32) mEq/L Anion Gap 16.5 H (5-15) BUN 15 (7-18) mg/dL Creatinine 0.9 (0.55-1.02) mg/dL Est Cr Clr Drug Dosing 43.30 mL/min Estimated GFR (MDRD) > 60 (>60) mL/min BUN/Creatinine Ratio 16.7 (14-18) Glucose 188 H (83-115) mg/dL Calcium 8.7 (8.5-10.1) mg/dL Total Bilirubin 0.3 (0.2-1.0) mg/dL AST 20 (15-37) U/L ALT 23 (14-59) U/L Alkaline Phosphatase 108 (46-116) U/L Troponin I < 0.017 < 0.017 (0.00-0.056) ng/mL Total Protein 7.9 (6.4-8.2) g/dl Albumin 3.7 (3.4-5.0) g/dl Globulin 4.2 gm/dL Albumin/Globulin Ratio 0.9 L (1-2) Meds: Medications Generic Name Dose Route Start Last Admin Trade Name Dusty PRN Reason Stop Dose Admin Sodium Chloride 10 ml 07/29/20 07:25 07/29/20 07:31 Sodium Chloride 0.9% 10 Ml Syringe FLUSH 10 ml ASDIRECTED PRN Administration Keep Vein Open Discontinued Medications Generic Name Dose Route Start Last Admin Trade Name Dusty PRN Reason Stop Dose Admin Aspirin 324 mg 07/29/20 07:26 07/29/20 07:30 Aspirin 81 Mg Tab.Chew PO 07/29/20 07:27 324 mg ONETIME ONE Administration - Re-Assessments/Exams Free Text/Narrative Re-Assessment/Exam: 07/29/20 10:06 I ordered an IV saline lock, EKG, CXR, labs and aspirin. Her EKG shows a NSR with no acute changes. 07/29/20 10:08 Her CXR looks good. Her CBC shows nothing acute. Her anion gap was elevated 16.5. Her glucose is elevated at 188. Her troponin is negative. I will get a repeat troponin in 3 hours and call cardiology. 07/29/20 11:36 Her repeat troponin is negative. She has no pain now but she just feels tired. I do not have results back from the echo and stress test. I will call Dr Figueroa and update him. 07/29/20 11:40 He was okay with what we did here and he will be looking for the stress test and echo results. He will get her a holter monitor later. I will discharge her home. Departure - Departure Time of Disposition: 11:45 Disposition: Home, Self-Care 01 Condition: Good Clinical Impression: Atypical chest pain Referrals: Jerrod Figueroa MD [Primary Care Provider] - 1 Week Forms: ED Department Discharge Additional Instructions: Take your medication as prescribed. Follow up with Dr Figueroa. Please return if you are worse. Sepsis Event Note (ED) - Evaluation Sepsis Screening Result: No Definite Risk - Focused Exam Vital Signs: Vital Signs Temp Pulse Resp BP Pulse Ox 07/29/20 07:24 97.5 F 77 20 171/63 H 97 - My Orders Last 24 Hours: My Active Orders 07/29/20 07:25 Cardiac Monitoring [RC] . DIRECTED Sodium Chloride 0.9% [Saline Flush] 10 ml FLUSH ASDIRECTED PRN Peripheral IV Insertion Adult [OM.PC] Stat 07/29/20 07:26 EKG Documentation Completion [RC] STAT Peripheral IV Care [RC] . DIRECTED 07/29/20 10:16 EKG Documentation Completion [RC] ASDIRECTED EKG 12 Lead [EK] Stat - Assessment/Plan Last 24 Hours: My Active Orders 07/29/20 07:25 Cardiac Monitoring [RC] . DIRECTED Sodium Chloride 0.9% [Saline Flush] 10 ml FLUSH ASDIRECTED PRN Peripheral IV Insertion Adult [OM.PC] Stat 07/29/20 07:26 EKG Documentation Completion [RC] STAT Peripheral IV Care [RC] . DIRECTED 07/29/20 10:16 EKG Documentation Completion [RC] ASDIRECTED EKG 12 Lead [EK] Stat
== END 2020-07-29 11:47 | disposition home or self-care (01) ==
LOC: JD.ED 07:17
DX: R07.89 Other chest pain (principal); E78.00 Pure hypercholesterolemia, unspecified; I10 Essential (primary) hypertension; E11.9 Type 2 diabetes mellitus without complications; E03.9 Hypothyroidism, unspecified; Z79.84 Long term (current) use of oral hypoglycemic drugs; Z79.899 Other long term (current) drug therapy; Z88.6 Allergy status to analgesic agent; Z88.5 Allergy status to narcotic agent
CPT/HCPCS: 36415; 71045; 80053; 84484; 85025; 93005; 99285; A9270; 93010; 99284

== ENCOUNTER 2021-06-30 08:42 | Day surgery (SDC) | payer MEDICARE, BC ==
[~2021-06-30 08:42] MED LIST changes: -Brimonidine 0.2% Ophth Soln 5 ML Bottle EYERT SCH; -Cefuroxime 10 MG/ML SYRINGE EYERT SCH; +Lactated Ringers 1,000 ML IV SCH; -Lidocaine 1% PF 2 ML SDV INJECT SCH; +Lidocaine 1%/Sod Bicarbonate in NS 8.4% 1 ML Syringe IDERM PRN; -Phenylephrine 2.5% Ophth Soln 2 ML Bot EYERT SCH; -Pilocarpine 4% Ophth Soln 15 ML Bot EYERT SCH; -Polymyxin B/Trimethoprim 10 ML Bottle EYERT SCH; +Propofol 200 MG/20 ML SDV ONE; +Sodium Chloride 0.9% 10 ML Syringe FLUSH PRN; +Sodium Chloride 0.9% 10 ML Syringe FLUSH SCH; -Tetracaine HCl/PF 0.5% 4 ML Bottle EYERT SCH; -Tropicamide 1% Ophth Soln 15 ML Bottle EYERT SCH; +fentaNYL 100 MCG/2 ML SDV ONE
[2021-06-30] MEDS ORDERED: Ondansetron 4 MG/2 ML SDV ONE (10:13)
[2021-06-30 12:08] VITALS: BP 120/76; PULSE 70
== END 2021-06-30 11:45 | disposition home or self-care (01) ==
LOC: JD.SDS 08:42
PROVIDERS: ATTEND Surgery
DX: D12.8 Benign neoplasm of rectum (principal); D12.0 Benign neoplasm of cecum; D12.2 Benign neoplasm of ascending colon; D12.4 Benign neoplasm of descending colon; K21.9 Gastro-esophageal reflux disease without esophagitis; K57.30 Diverticulosis of large intestine without perforation or abscess without bleeding; K29.60 Other gastritis without bleeding; K64.9 Unspecified hemorrhoids; E11.9 Type 2 diabetes mellitus without complications; I10 Essential (primary) hypertension; R05.3 Chronic cough; G47.33 Obstructive sleep apnea (adult) (pediatric); I25.10 Atherosclerotic heart disease of native coronary artery without angina pectoris; E78.00 Pure hypercholesterolemia, unspecified; E03.9 Hypothyroidism, unspecified; H54.7 Unspecified visual loss; Z95.5 Presence of coronary angioplasty implant and graft; Z88.5 Allergy status to narcotic agent; Z90.711 Acquired absence of uterus with remaining cervical stump; Z98.890 Other specified postprocedural states; Z79.890 Hormone replacement therapy; Z79.82 Long term (current) use of aspirin; Z79.84 Long term (current) use of oral hypoglycemic drugs; Z79.899 Other long term (current) drug therapy; Z86.010 Personal history of colon polyps; Z80.0 Family history of malignant neoplasm of digestive organs; Z87.891 Personal history of nicotine dependence
CPT/HCPCS: 43239; 45380; J2405; J2704; J3010; J7120; 00813; 99100

== ENCOUNTER 2023-03-20 08:25 | Day surgery (SDC) | payer MEDICARE, BC ==
[2023-03-20] MEDS: Lactated Ringers 1,000 ML IV SCH (08:50)
[2023-03-20] MEDS ORDERED: Ondansetron 4 MG/2 ML SDV IVPUSH PRN (09:25)
[2023-03-20] MEDS ORDERED: Ketamine 200 MG/20 ML MDV ONE (09:36)
[2023-03-20] MEDS ORDERED: Midazolam 1 MG/ML 2 ML SDV ONE (09:36)
[2023-03-20] MEDS ORDERED: Lidocaine 1% 4 ML ONE (09:36)
[2023-03-20] MEDS ORDERED: Propofol 200 MG/20 ML SDV ONE (09:36)
[2023-03-20 13:00] VITALS: BP 135/78; PULSE 80
== END 2023-03-20 11:45 | disposition home or self-care (01) ==
LOC: JD.SDS 08:25 → MERGE 12:45
PROVIDERS: ATTEND Surgery
DX: K29.50 Unspecified chronic gastritis without bleeding (principal); K44.9 Diaphragmatic hernia without obstruction or gangrene; E11.9 Type 2 diabetes mellitus without complications; I10 Essential (primary) hypertension; E78.5 Hyperlipidemia, unspecified; E03.9 Hypothyroidism, unspecified; Z87.891 Personal history of nicotine dependence; Z79.890 Hormone replacement therapy; Z98.890 Other specified postprocedural states; Z79.84 Long term (current) use of oral hypoglycemic drugs; Z79.899 Other long term (current) drug therapy; Z88.5 Allergy status to narcotic agent; Z88.8 Allergy status to other drugs, medicaments and biological substances
CPT/HCPCS: J2250; J2704; J3490; J7120